=== PATIENT | female | born 1995 | race Hispanic/Latino ===

== ENCOUNTER 2023-08-13 14:28 | Outpatient (CLI) | payer OTHER, SELFPAY | END 2023-08-13 14:29 | disposition home or self-care (01) | LOC: ANHSURGERY 14:37 | PROVIDERS: Visit Provider Obstetrics & Gynecology | DX: Z01.818 Encounter for other preprocedural examination (principal); N94.6 Dysmenorrhea, unspecified | CPT/HCPCS: 36415; 86850; 86900; 86901 ==

== ENCOUNTER 2023-08-16 00:10 | Day surgery (SDC) | payer OTHER, SELFPAY ==
[2023-08-09 10:20] VITALS: BMI 28.0
--- NOTE | 2023-08-09 10:21 | PC.NURSE ---
Report to the Outpatient Waiting Room, entrance under the green pavilion located off [facility], at time _0600_ on date _08/16/23_. Planned Procedure Time: __07__. Time changes happen often and if your time is changed the preop area will call you the afternoon before. - You and your visitor will be asked to self-screen and do not enter if you have any COVID symptoms. - A mask is optional within the hospital at this time. Patients may have clear liquids (water, carbonated beverages, clear teas, apple juice) until 3 hours prior to surgery with a maximum of 20 ounces. - No food from midnight until time of surgery - Infants may have breast milk until 4 hours before surgery, infant formula 6 hours prior to surgery. - Children will be allowed to drink immediately following surgery. If applicable, please bring a bottle or sippy cup to assist with drinking. Juice, water, soda, and popsicles are readily available. For infants on formula, please bring formula the day of surgery. Pacifiers are allowed. Take the following medications with a SIP of water the morning of surgery: ___None__ DO NOT STOP ANY OF YOUR OTHER PRESCRIPTION MEDICATIONS PRIOR TO SURGERY ?EXCEPT THE FOLLOWING Medications to discontinue per physician __supplements and vitamins 3 days prior Date to take last dose Please no make-up, nail bengali, hairspray, perfume, deodorant, or body powder the day of surgery. No jewelry (including any body piercings) or valuables the day of surgery, leave them at home. Please take a shower or bath the night before, or the morning of, surgery with an antibacterial soap. Wear comfortable, loose fitting clothing. Children are encouraged to wear pajamas. - Jewelry must be removed prior to entering the operating room. Rings and piercings that are not removed may be cut off. - The hospital will not accept responsibility for valuables. - Please leave all valuables, including medications, at home the day of surgery. If you are going home after surgery, a licensed hearse driver must drive you home. - NO public transportation without another adult if you receive anesthesia. - We recommend that an adult stay with you for 24 hours following discharge. - We also recommend that you do not drive, make important decision, drink alcoholic beverages, or take any drugs that were not prescribed by your health care provider for at least 24 hours after your discharge time. For Pediatric surgeries, we recommend two adults accompany the child home. Follow any additional instructions given to you from your surgeon. If you or anyone in your household have experienced Covid symptoms in the past week, please notify your surgeon or the nurse liaison at the phone number below for possible testing. Telephone instructions given to _Patient__and asked if any additional questions and then verbalized understanding. Patient advised to call surgeon office or pre surgery nurse liaison [phone] if any additional questions.
--- NOTE | 2023-08-14 06:57 | PM.IMHP ---
H&P: HPI History of Present Illness Date/Time: 08/14/23 06:57 Chief Complaint: Pelvic pain Narrative: This the 20 year 0 who is admitted laparoscopy secondary to chronic and severe pelvic pain. Appears to be more left-sided than right and has been progressively worsening. She underwent imaging which showed the IUD in the correct spot and with no gross abnormalities. There is a strong family history of endometriosis. Risks and benefits of this procedure reviewed including but not exclusive of , aspiration pneumonia, bleeding, transfusion, perforation injury to bowel, bladder, ureters, or other internal organs with need for open laparotomy and repair. She received the [employer] handout entitled laparoscopy. She had all questions answered to her satisfaction. She asked to proceed PMFSH Past Medical History Medical History Environmental allergies PCOS (polycystic ovarian syndrome) Surgical History Surgical History History of wisdom tooth extraction Family History Family History Father Hypertension Mother Thyroid disorder Social History Social History Smoking status: Never smoker Alcohol intake: current Drinks per week: 1 Substance use: current Substance use type: other Other substance usage details: TCH gummies every other day Last use: this week Living arrangements: with family Additional living arrangements comments: Boyfriend and sister Occupation/Education: occupation Gender identity (if verbalized by the patient): Female Sexual Orientation (if Verbalized by the Patient): Straight or Heterosexual Spiritual care concerns: No Meds Home Medications and Allergies Home Medications Medication Instructions Recorded Confirmed Type No Home Medications 12/13/20 12/13/20 History Allergies Allergy/AdvReac Type Severity Reaction Status Date / Time No Known Allergies Allergy Unverified 12/13/20 14:00 Exam Const: General: cooperative, healthy appearing and comfortable Nutritional Appearance: average body habitus Orientation/consciousness: oriented to person, oriented to place and oriented to time HENMT: Head: normal to inspection Resp: Effort & Inspection: normal respiratory effort Cardio: Rate: regular rate Rhythm: regular rhythm Heart sounds: S1 normal heart sound present and S2 normal heart sound present GI: Inspection: normal to inspection : External Female Exam: normal external appearance Speculum Exam - Vagina: normal appearance of the vagina Speculum Exam - Cervix: normal appearance of the cervix Bimanual exam- vagina & uterus: uterine shape normal Bimanual Exam- Adnexa, other: tender bilaterally Assessment and Plan Assessment and plan (1) Pelvic pain: Code(s): R10.2 - Pelvic and perineal pain Status: Acute Plan Will proceed with laparoscopy
[2023-08-16] VITALS (8 sets, daily range): BP systolic 105–124; BP diastolic 61–87; PULSE 74–98; RESP 12–16; TEMP 36.3; O2SAT 100
--- NOTE | 2023-08-16 06:28 | WPDHPUPDATE1 ---
History and Physical Update Update Date/Time: 08/16/23 06:28 History and Physical has been reviewed, including an updated exam of the patient. There are NO changes in the patient's condition. Risks, benefits, and alternatives have been discussed and questions answered. Patient agrees to proceed with procedure.
[2023-08-16] MEDS: ACETAMINOPHEN 500 MG TABLET 1000 MG PO (06:53)
[2023-08-16] MEDS: LACTATED RINGERS 1,000 ML 30 ML IV CONT (06:53)
[2023-08-16] MEDS: SCOPOLAMINE 1.5 MG PATCH TRANSDERM (06:53)
[2023-08-16] MEDS: KETOROLAC 15 MG/ML VIAL (*BKC) IV PUSH (06:53)
--- NOTE | 2023-08-16 06:59 | P.PNAN_ITS ---
Anes - Initial Pre Proc Eval Procedure: Operation Date: 08/16/23 07:30 Proposed Procedures p Diagnostic Laparoscopy - Antwon Pearl MD Date/Time: 08/16/23 06:59 Surgeon: Antwon Pearl MD Pre Op Diagnosis: pelvic pain, dysmenorrhea Patient Data Age: 28 Gender: F Height: 1.5 m Weight: 63.1 kg Allergies Allergy/AdvReac Type Severity Reaction Status Date / Time No Known Allergies Allergy Unverified 12/13/20 14:00 Home Medications Medication Instructions Recorded Confirmed Type hydrocodone 5 mg-acetaminophen 325 1 tablet PO Q4H PRN pain #20 tabs 08/16/23 Rx mg tablet Patient hx anesthesia problems: none Family hx anesthesia problems: none Results Review: All pre-operative results and documents have been reviewed as part of the pre- operative evaluation. [facility] Past Medical History Medical History Environmental allergies PCOS (polycystic ovarian syndrome) Surgical History Surgical History History of wisdom tooth extraction Family History Family History Father Hypertension Mother Thyroid disorder Social History Social History Smoking status: Never smoker Alcohol intake: current Drinks per week: 1 Substance use: current Substance use type: other Other substance usage details: TCH gummies every other day Last use: this week Living arrangements: with family Additional living arrangements comments: Boyfriend and sister Occupation/Education: occupation Gender identity (if verbalized by the patient): Female Sexual Orientation (if Verbalized by the Patient): Straight or Heterosexual Spiritual care concerns: No Anes - Eval Final PreProcedure Day of Procedure 08/16/23 06:59 Patient weight: overweight Heart: regular rate and rhythm Lungs: clear to auscultation Airway: Mallampati scale class II Neurological: alert and oriented Last oral intake: >/= 8 hours ASA classification: II Emergent: no Anesthetic plan: proceed Anesthesia type and monitoring: general ETT and standard monitoring Results Review: All pre-operative results and documents have been reviewed as part of the pre- operative evaluation. Informed Consent: The patient's anesthetic plan and its attendant risks and benefits were discussed with the patient/family/POA. Questions were solicited and answers provided to the satisfaction of the patient/family/POA.
--- NOTE | 2023-08-16 08:10 | P.OP_ITS ---
Procedure Note - Detailed Date of Procedure 08/16/23 Pre-op Diagnosis pelvic pain, dysmenorrhea Post-op Diagnosis Other (/dysmenorrhea/endometriosis/adhesions) Procedure Performed Laparoscopic destruction right ovarian cyst laparoscopic destruction of endometriosis. Laparoscopic lysis of adhesions Surgeon Antwon Pearl MD Anesthesia General Indications This is a 20 female pelvic pain dyspareunia Findings Enlarged right which was socked into the ovarian fossa. Normal-appearing uterus and tubes. Multiple adhesions from the each adnexa to lateral sidewalls Description of Procedure Patient was prepped and draped in the normal sterile fashion placed in dorsal lithotomy position. Excellent general trach anesthesia weighted speculum placed in posterior fornix vagina. Anterior lip of the cervix grasped with single- tooth tenaculum. Wise's cannula inserted the cervix and attached to the single-tooth. This was to be used later for uterine manipulation. After emptying the bladder of clear urine, the weighted speculum was removed and the gloves were changed. An infraumbilical incision made the Veress needle passed in the abdomen. Abdomen filled with CO2 gas [id number] the 5mm trocar advanced under direct visualization assuring no injury. The above findings were seen. Photo documentation was undertaken. Ovarian cyst was opened in linear fashion and drained of clear liquid. [id number] of blood in the cul-de-sac and this was suctioned and erased and removed. The right ovary was markedly adherent to the ovarian fossa and this was sharply dissected and irrigated till clear. In terceed was placed behind that to prevent recurrence of adhesions. Similarly on the left were adhesions and these were sharply dissected and the ovary loosened in photo documentation undertaken. Small areas of endometriosis were seen in cul-de-sac and these were point cauterized at 35 w per 2nd. Vigorous irrigation undertaken until clear. The lower site removed. The gas removed from the abdom en. The upper site removed the incisions closed with 4 Monocryl glue. The patient went to recovery in satisfactory condition. All sponge, needle, instrument counts were correct. There were no immediate complications noted Estimated Blood Loss 25 Drains No Packing No Pathology None sent Complications No immediate complications Condition Stable Disposition PACU
[2023-08-16] MEDS: oxyCODONE HCL (*CRX) 5 MG TAB IR PO (09:15)
== END 2023-08-16 10:02 | disposition home or self-care (01) ==
PROVIDERS: Visit Provider Obstetrics & Gynecology
PROC: (CPT 49320; principal; 2023-08-16 07:30)
DX: N83.201 Unspecified ovarian cyst, right side (principal); N80.8 Other endometriosis; N73.6 Female pelvic peritoneal adhesions (postinfective); F12.90 Cannabis use, unspecified, uncomplicated
CPT/HCPCS: 58662; 36415; 86850; 86900; 86901; A9270; J0330; J1885; J2250; J2405; J2704; J3010; J7030; J7120